=== PATIENT | male | born 1950 | race Caucasian/White ===

== ENCOUNTER 2016-12-14 17:12 | Emergency (ER) | payer BC, OTHER ==
[2016-12-14] MEDS ORDERED: SULFAMETH/TRIMETH DS 800/160 MG TABLET PO STA (18:30)
[2016-12-14] MEDS ORDERED: ceFAZolin 1 GM VIAL IM STA (18:30)
[2016-12-14] MEDS ORDERED: ceFAZolin 1 GM VIAL ONE (18:47)
[2016-12-14] MEDS ORDERED: SULFAMETH/TRIMETH DS 800/160 MG TABLET PO ONE (18:47)
[2016-12-14] MEDS ORDERED: WATER FOR INJECTION,STERILE 10 ML ONE (18:48)
--- NOTE | 2016-12-14 19:14 | ED Physician Documentation ---
History of Present Illness - Stated complaint Stated Complaint: RT FOOT SWELLING PX - Chief complaint Chief Complaint: Ext Problem - History obtained from History obtained from: Patient - Additonal information Additional information: Patient is a 66-year-old man with rheumatoid arthritis on Humira and methotrexate. He sustained an abrasion to the right lateral malleolus when he scraped it on the ladder on the of this month. Over the past couple days the area has become red, swollen, more tender to touch and is been oozing. He is concerned about infection. He has no other systemic complaints. During evaluation for the latter injury he had radiographs done which were negative and also got tetanus prophylaxis. Review of systems: For pertinent positive and negatives in the review of systems please see the history of present illness, otherwise all other systems have been reviewed and are negative. Dragon disclaimer: Parts of this medical record were created using voice recognition technology. Because of the inherent limitations of this system, occasional same sounding word substitutions do occur and persist despite proofreading. Please read the document for context. Review of Systems Constitutional: denies: Fever, Chills Musculoskeletal: reports: Extremity pain, Joint pain, Extremity swelling, Joint swelling PD PAST MEDICAL HISTORY - Past Medical History Past Medical History: Yes Cardiovascular: Hypertension Respiratory: Asthma Other Past Medical History: rheumatoid arthritis - Past Surgical History Past Surgical History: Yes General: Hiatal hernia repair - Present Medications Home Medications: Ambulatory Orders Medication Instructions Recorded Confirmed Adalimumab [Humira] 1 unit SQ 12/14/16 Cephalexin [Keflex] 1,000 mg PO BID #20 capsule 12/14/16 Folic Acid 3 mg PO DAILY 12/14/16 12/14/16 Hydroxychloroquine [Plaquenil] 200 mg PO DAILY 12/14/16 12/14/16 Methotrexate 0.3 mg PO DAILY 12/14/16 12/14/16 Pravastatin [Pravachol] 10 mg PO DAILY 12/14/16 12/14/16 Sulfamethox/Trimeth 800/160 1 each PO BID #10 tablet 12/14/16 [Bactrim Ds 800/160] - Allergies Allergies/Adverse Reactions: Allergies Allergy/AdvReac Type Severity Reaction Status Date / Time clarithromycin [From Biaxin] Allergy Nausea Verified 12/14/16 17:21 lisinopril Allergy Dizziness Verified 12/14/16 18:18 - Social History Does the pt smoke?: No Smoking Status: Never smoker Does the pt drink ETOH?: No Does the pt have substance abuse?: No PD ED PE NORMAL - General General: Alert and oriented X 3, No acute distress, Well developed/nourished - Cardiac Cardiac: RRR - Respiratory Respiratory: No respiratory distress, Clear bilaterally - Abdomen Abdomen: Normal bowel sounds - Derm Derm: Normal color, Warm and dry, No rash - Extremities Extremities: Other (On examination his right lower extremity there is mild edema of the dorsum of the right foot. Circulation looks fantastic. He does have an abrasion of the right lateral malleolus that is superficial but appears to be infected. It is wet with surrounding erythema, edema and is noted to be tender. There is no fluctuance present) Results - Vitals Vitals: Vital Signs - 24 hr 12/14/16 17:18 Temperature 36.7 C Heart Rate 77 Respiratory 18 Rate Blood Pressure 131/84 H O2 Saturation 97 Oxygen O2 Source Room air PD MEDICAL DECISION MAKING - ED course Complexity details: reviewed results, re-evaluated patient, d/w patient, d/w family ED course: This patient has a superficial skin infection of the right lateral malleolus. This patient is at risk given his immunocompromise state from his Humira and methotrexate. The wound was debrided and cleansed by me using cotton 4 x 4 scrubs and chlorhexidine. The patient was given 1 g of Ancef intramuscularly and will be started on Bactrim p.o. for dual coverage for both staph and strep. The patient agrees to watch it closely for worsening. He is to rest it, elevate it, take his antibiotics as prescribed, perform wound care and return if worse. He has no follow-up physician in town since he is a traveler. If he gets worse he is urged to come back to the emergency department. Disposition: To home Clinical impression: 1. Cellulitis right ankle at lateral malleolus Departure - Departure Disposition: 01 Home, Self Care Clinical Impression: Cellulitis of right ankle Condition: Good Instructions: ED Infec Skin Cellulitis Prescriptions: Sulfamethox/Trimeth 800/160 [Bactrim Ds 800/160] 1 each PO BID #10 tablet Cephalexin [Keflex] 1,000 mg PO BID #20 capsule
[2016-12-14 19:26] VITALS: BP 116/78
== END 2016-12-14 19:25 | disposition home or self-care (01) ==
LOC: ED 17:12
DX: L03.115 Cellulitis of right lower limb (principal); I10 Essential (primary) hypertension; M06.9 Rheumatoid arthritis, unspecified
CPT/HCPCS: 96372; 99283; A9270

== ENCOUNTER 2018-03-17 10:37 | Emergency (ER) | payer MEDICARE, OTHER ==
[2018-03-17 10:47] VITALS: BP 151/91
[2018-03-17 11:01] LABS: BILIRUBIN,URINE NEGATIVE (NEGATIVE); GLUCOSE, URINE (UA) NEGATIVE (NEGATIVE); KETONES,URINE (UA) NEGATIVE (NEGATIVE); LEUKOCYTE ESTERASE, URINE LARGE (NEGATIVE); NITRITE,URINE NEGATIVE (NEGATIVE); OCCULT BLOOD,URINE MODERATE (NEGATIVE); PROTEIN,URINE 100 mg/dL (NEGATIVE); UROBILINOGEN,URINE 0.2 (NORMAL) E.U./dL (NORMAL)
[2018-03-17 11:09] LABS: CLARITY,URINE CLOUDY (CLEAR)
[2018-03-17 11:17] LABS: BACTERIA,URINE Many /HPF (None Seen); SQUAMOUS EPITHELIAL CELL,UR RARE Squamous (<= Few)
[2018-03-17] MEDS ORDERED: cephALEXin 250 MG CAPSULE PO STA (11:24)
--- NOTE | 2018-03-17 11:33 | ED Physician Documentation ---
History of Present Illness - Stated complaint Stated Complaint: MALE - Chief complaint Chief Complaint: General - Additonal information Additional information: 67-year-old male presents the emergency department with ongoing dysuria over the past several days. The patient's dysuria has been becoming more frequent and the patient's noticed that he has to strain to pass urine and reports flatulence with these episodes. The patient is denying focal abdominal pain or flank pain or fever. Symptoms are described as moderate and worsening. No other associated symptoms. No relieving factors. Review of Systems Constitutional: denies: Fever Eyes: denies: Discharge Ears: denies: Ear pain Nose: denies: Congestion Cardiac: denies: Chest pain / pressure Respiratory: denies: Cough GI: denies: Diarrhea : reports: Dysuria. denies: Incontinent Skin: denies: Rash Musculoskeletal: denies: Neck pain Neurologic: denies: Generalized weakness Immunocompromised: reports: Immunocompromised PD PAST MEDICAL HISTORY - Past Medical History Past Medical History: Yes Cardiovascular: Hypertension Respiratory: Asthma GI: Ulcerative colitis Musculoskeletal: Rheumatoid arthritis - Past Surgical History Past Surgical History: Yes General: Hiatal hernia repair - Present Medications Home Medications: Ambulatory Orders Medication Instructions Recorded Confirmed Adalimumab [Humira] 1 unit SQ 12/14/16 Cephalexin [Keflex] 1,000 mg PO BID #20 capsule 12/14/16 Folic Acid 3 mg PO DAILY 12/14/16 12/14/16 Hydroxychloroquine [Plaquenil] 200 mg PO DAILY 12/14/16 12/14/16 Methotrexate 0.3 mg PO DAILY 12/14/16 12/14/16 Pravastatin [Pravachol] 10 mg PO DAILY 12/14/16 12/14/16 Sulfamethox/Trimeth 800/160 1 each PO BID #10 tablet 12/14/16 [Bactrim Ds 800/160] Cephalexin [Keflex] 500 mg PO BID #14 capsule 03/17/18 - Allergies Allergies/Adverse Reactions: Allergies Allergy/AdvReac Type Severity Reaction Status Date / Time clarithromycin [From Biaxin] Allergy Nausea Verified 12/14/16 17:21 lisinopril Allergy Dizziness Verified 12/14/16 18:18 - Social History Does the pt smoke?: No Smoking Status: Never smoker Does the pt drink ETOH?: Yes ETOH Use: Beer, Liquor Does the pt have substance abuse?: No - Immunizations Immunizations are current?: Yes - POLST Patient has POLST: Yes PD ED PE NORMAL - General General: Alert and oriented X 3, No acute distress - HEENT HEENT: Atraumatic, PERRL, EOMI, Ears normal - Cardiac Cardiac: RRR, Strong equal pulses - Respiratory Respiratory: No respiratory distress - Abdomen Abdomen: Normal bowel sounds, Soft, Non tender - Back Back: No CVA TTP - Derm Derm: Normal color - Extremities Extremities: No deformity, No edema - Neuro Neuro: Alert and oriented X 3, Normal speech - Psych Psych: Normal affect Results - Vitals Vitals: Vital Signs - 24 hr 03/17/18 10:41 Temperature 36.9 C Heart Rate 86 Respiratory 16 Rate Blood Pressure 151/91 H O2 Saturation 97 Oxygen O2 Source Room air - Labs Labs: Laboratory Tests 03/17/18 10:50 Urine Color YELLOW Urine Clarity CLOUDY Urine pH 6.0 Ur Specific [place] >=1.030 H Urine Protein 100 H Urine Glucose (UA) NEGATIVE Urine Ketones NEGATIVE Urine Occult Blood MODERATE H Urine Nitrite NEGATIVE Urine Bilirubin NEGATIVE Urine Urobilinogen 0.2 (NORMAL) Ur Leukocyte Esterase LARGE H Urine RBC 11-25 H Urine WBC >25 H Ur Squamous Epith Cells RARE Squamous Urine Bacteria Many H Ur Microscopic Review INDICATED Urine Culture Comments INDICATED PD MEDICAL DECISION MAKING - ED course ED course: The patient has acute cystitis and will require antibiotic therapy. Presently on physical exam there is no findings to suggest pyelonephritis or sepsis at this point. The patient is well-appearing and appropriate for outpatient management. I discussed with the patient and his the findings and plan. They understand and agree. I discussed that the may require a urology consultation for further investigation. They understand and agree. I discussed warning signs and recommended returning to the emergency department immediately for any worsening or concerns. Departure - Departure Disposition: 01 Home, Self Care Clinical Impression: Acute cystitis with hematuria Condition: Good Instructions: ED Infec Bladder Cystitis Male Prescriptions: Cephalexin [Keflex] 500 mg PO BID #14 capsule Comments: Please follow-up with primary care for ongoing management of your symptoms. Please ask for a referral to urology to further assess your symptoms. Please return to the emergency department immediately for any worsening or any concerns. Discharge Date/Time: 03/17/18 11:39
== END 2018-03-17 11:39 | disposition home or self-care (01) ==
LOC: ED 10:37
DX: N30.91 Cystitis, unspecified with hematuria (principal); I10 Essential (primary) hypertension; M06.9 Rheumatoid arthritis, unspecified
CPT/HCPCS: 81001; 87086; 87181; 99283; A9270; 81003

== ENCOUNTER 2018-03-28 11:20 | Inpatient (IN) | payer MEDICARE, OTHER ==
[2018-03-28] MEDS ORDERED: ONDANSETRON 4 MG/2 ML VIAL IVP STA (12:35)
[2018-03-28] MEDS ORDERED: SODIUM CHLORIDE 0.9% 1,000 ML IV ONE (12:35)
--- NOTE | 2018-03-28 12:40 | ED Physician Documentation ---
History of Present Illness - Stated complaint Stated Complaint: VOMITING/FEVER - Chief complaint Chief Complaint: Abd Pain - History obtained from History obtained from: Patient, Family - History of Present Illness Timing: How many days ago (2) Pain level max: 0 Pain level now: 0 Improved by: motrin Worsened by: coughing Associated symptoms: fever, nausea, vomiting, sorethroat, productive whitish cough - Additonal information Additional information: 67 y/o male with history of asthma, HTN, RA (on Humira, Methotrexate), sinus surgery here with with complain of fever 103 2 days ago controlled with tylenol and/or motrin; nausea and vomiting without abdominal pain but feels bloated, sorethroat from vomiting and coughing productively. Denies any trauma,travel or sick contacts. From [place] - moved in January. Review of Systems Ten Systems: 10 systems reviewed and negative Constitutional: reports: Fever, Myalgias Nose: reports: Congestion. denies: Sinus pressure / pain Throat: reports: Sore throat Cardiac: denies: Chest pain / pressure Respiratory: reports: Cough. denies: Dyspnea, Hemoptysis GI: reports: Abdominal Swelling. denies: Abdominal Pain : denies: Dysuria Skin: denies: Rash Musculoskeletal: denies: Neck pain, Back pain, Joint pain, Extremity swelling Neurologic: reports: Generalized weakness. denies: Focal weakness, Near syncope, Syncope, Confused, Altered mental status, Headache, Reviewed and negative PD PAST MEDICAL HISTORY - Past Medical History Cardiovascular: Hypertension Respiratory: Asthma GI: Ulcerative colitis Musculoskeletal: Rheumatoid arthritis - Past Surgical History Past Surgical History: Yes General: Hiatal hernia repair - Present Medications Home Medications: Ambulatory Orders Medication Instructions Recorded Confirmed Adalimumab [Humira] 1 unit SQ 12/14/16 Cephalexin [Keflex] 1,000 mg PO BID #20 capsule 12/14/16 Folic Acid 3 mg PO DAILY 12/14/16 12/14/16 Hydroxychloroquine [Plaquenil] 200 mg PO DAILY 12/14/16 12/14/16 Methotrexate 0.3 mg PO DAILY 12/14/16 12/14/16 Pravastatin [Pravachol] 10 mg PO DAILY 12/14/16 12/14/16 Sulfamethox/Trimeth 800/160 1 each PO BID #10 tablet 12/14/16 [Bactrim Ds 800/160] Cephalexin [Keflex] 500 mg PO BID #14 capsule 03/17/18 - Allergies Allergies/Adverse Reactions: Allergies Allergy/AdvReac Type Severity Reaction Status Date / Time amlodipine Allergy Unknown Verified 03/28/18 11:26 clarithromycin [From Biaxin] Allergy Nausea Verified 03/28/18 11:26 lisinopril Allergy Dizziness Verified 03/28/18 11:26 - Social History Does the pt smoke?: No Smoking Status: Never smoker Does the pt drink ETOH?: Yes Does the pt have substance abuse?: No - Immunizations Immunizations are current?: Yes - POLST Patient has POLST: Yes PD ED PE NORMAL - Vitals Vital signs reviewed: Yes - General General: Alert and oriented X 3, No acute distress, Well developed/nourished - HEENT HEENT: Atraumatic, PERRL, EOMI, Moist mucous membranes, Other (posterior pharynx erythematous but without exudate) - Neck Neck: Supple, no meningeal sign, Other (small nontender anterior cervical adenopathy) - Cardiac Cardiac: RRR, No murmur - Respiratory Respiratory: No respiratory distress, Clear bilaterally - Abdomen Abdomen: Normal bowel sounds, Soft, Non tender, Non distended - Back Back: No CVA TTP, No spinal TTP - Derm Derm: Normal color, Warm and dry, No rash - Extremities Extremities: No deformity, No edema - Neuro Neuro: Alert and oriented X 3 - Psych Psych: Normal mood, Normal affect Results - Vitals Vitals: Vital Signs - 24 hr 03/28/18 03/28/18 03/28/18 11:23 11:58 13:29 Temperature 37.2 C 37.3 C Heart Rate 95 93 Respiratory 16 20 Rate Blood Pressure 127/68 O2 Saturation 94 Oxygen O2 Source Room air - Labs Labs: Laboratory Tests 03/28/18 03/28/18 03/28/18 11:50 11:50 12:47 WBC 18.3 H RBC 3.87 L Hgb 12.0 L Hct 34.7 L MCV 89.6 MCH 30.9 MCHC 34.5 RDW 14.4 Plt Count 231 MPV 8.0 Neut # (Auto) 17.0 H Lymph # (Auto) 0.5 L Love # (Auto) 0.8 Eos # (Auto) 0.0 Baso # (Auto) 0.0 Absolute Nucleated RBC 0.00 Nucleated RBC % 0.0 Sodium Potassium Chloride Carbon Dioxide Anion Gap BUN Creatinine Estimated GFR (MDRD) Glucose Lactic Acid Calcium Total Bilirubin AST ALT Alkaline Phosphatase Total Protein Albumin Globulin Albumin/Globulin Ratio Lipase Influenza A (Rapid) Negative Influenza B (Rapid) Negative Group A Strep Rapid Negative 03/28/18 03/28/18 12:47 12:47 WBC RBC Hgb Hct MCV MCH MCHC RDW Plt Count MPV Neut # (Auto) Lymph # (Auto) Love # (Auto) Eos # (Auto) Baso # (Auto) Absolute Nucleated RBC Nucleated RBC % Sodium 132 L Potassium 4.0 Chloride 95 L Carbon Dioxide 26 Anion Gap 11.0 BUN 33 H Creatinine 1.6 H Estimated GFR (MDRD) 43 L Glucose 124 H Lactic Acid 1.3 Calcium 8.4 L Total Bilirubin 0.8 AST 32 ALT 24 Alkaline Phosphatase 91 Total Protein 7.6 Albumin 2.9 L Globulin 4.7 H Albumin/Globulin Ratio 0.6 L Lipase 27 Influenza A (Rapid) Influenza B (Rapid) Group A Strep Rapid PD MEDICAL DECISION MAKING - ED course Complexity details: reviewed results (Per RN patient has been coughing and complaining of bronchospasm requesting for nebulizer. Will order DuoNeb. Respiratory therapist at the bedside. And after treatment she stated that the patient felt better and his pulse ox is 97% room air. She denied hearing any stridor.), re-evaluated patient (1401Patient with productive cough expectorating white phlegm. Pulse ox is 95% room air. Lungs clear to auscultation bilaterally. Patient stated nebulizer helped. Patient appears weak and tired.), considered differential (influenza, bronchitis, pneumonia, strep/viral pharyngitis, sepsis), d/w patient, d/w family (1401Patient and informed of test results. And agreed to admission), d/w PMD (1408Case discussed with hospitalist Dr. Vasquez. She will admit the patient for dehydration and viral syndrome for observation.) Departure - Departure Disposition: 67 [facility] DC/Xfer Clinical Impression: Dehydration, Viral syndrome Condition: Stable
--- NOTE | 2018-03-28 12:55 | XRAY Report ---
Reason: chest pain Procedure Date: 03/28/2018 Accession Number: [id number] / [id number] Procedure: XR - Chest 1 View X-Ray CPT Code: 81638 FULL RESULT: EXAM: CHEST RADIOGRAPHY EXAM DATE: 03/28/2018 12:46 PM. CLINICAL HISTORY: Chest Pain. COMPARISON: None. TECHNIQUE: 1 view. FINDINGS: Lungs/Pleura: There is minimal streaky opacities at the lung bases favoring atelectasis or scarring. There is no vascular congestion, effusion, or pneumothorax. Mediastinum: Within exam limitations, the cardiomediastinal contour is normal. Other: None. IMPRESSION: Mild bibasilar airspace disease seen favoring atelectasis or scarring. RADIA
[2018-03-28 13:06] LABS: ALBUMIN 2.9 g/dL (3.2-5.5); ALBUMIN/GLOBULIN RATIO 0.6 (1.0-2.2); BASOPHILS % (AUTO) 0.1 %; BILIRUBIN,TOTAL 0.8 mg/dL (0.2-1.0); CALCIUM 8.4 mg/dL (8.5-10.3); CREATININE 1.6 mg/dL (0.6-1.2); LYMPHOCYTES # (AUTO) 0.5 10^3/uL (1.5-3.5); LYMPHOCYTES % (AUTO) 2.5 %; MEAN CORPUSCULAR HEMOGLOBIN 30.9 pg (27.0-31.0); MEAN CORPUSCULAR HGB CONC 34.5 g/dL (32.0-36.0); MEAN CORPUSCULAR VOLUME 89.6 fL (80.0-94.0); MONOCYTES # (AUTO) 0.8 10^3/uL (0.0-1.0); MONOCYTES % (AUTO) 4.4 %; PLT - PLATELET COUNT 231 10^3/uL (130-450); RED BLOOD COUNT 3.87 10^6/uL (4.70-6.10); RED CELL DISTRIBUTION WIDTH 14.4 % (12.0-15.0); TOTAL PROTEIN 7.6 g/dL (6.7-8.2); WHITE BLOOD COUNT 18.3 x10^3/uL (4.8-10.8)
[2018-03-28] MEDS ORDERED: IPRATROPIUM/ALBUTEROL 3 ML NEB INH STA (13:23)
[2018-03-28 14:46] LABS: BILIRUBIN,URINE NEGATIVE (NEGATIVE); GLUCOSE, URINE (UA) NEGATIVE (NEGATIVE); KETONES,URINE (UA) NEGATIVE (NEGATIVE); LEUKOCYTE ESTERASE, URINE TRACE (NEGATIVE); NITRITE,URINE NEGATIVE (NEGATIVE); OCCULT BLOOD,URINE MODERATE (NEGATIVE); PROTEIN,URINE 100 mg/dL (NEGATIVE); UROBILINOGEN,URINE 0.2 (NORMAL) E.U./dL (NORMAL)
[2018-03-28 14:56] LABS: CLARITY,URINE CLOUDY (CLEAR)
[2018-03-28 14:57] LABS: BACTERIA,URINE Moderate /HPF (None Seen); CASTS, URINE 3-5 Granular Casts /LPF; RBC,URINE 0-5 /HPF (0-5); SQUAMOUS EPITHELIAL CELL,UR RARE Squamous (<= Few)
[2018-03-28] MEDS ORDERED: TEMAZEPAM 15 MG CAPSULE PO PRN (15:16)
[2018-03-28] MEDS ORDERED: PROCHLORPERAZINE 10 MG/2 ML VIAL IVP PRN (15:16)
[2018-03-28] MEDS ORDERED: ACETAMINOPHEN 1,000 MG/100 ML 100 ML IV PRN ×2 (15:19→16:55)
[2018-03-28] MEDS ORDERED: IPRATROPIUM/ALBUTEROL 3 ML NEB INH PRN (15:26)
[2018-03-28] MEDS: D5NS W/20 MEQ KCL 1,000 ML IV SCH (16:32)
[2018-03-28] MEDS: PANTOPRAZOLE 40 MG VIAL IVP SCH (16:33)
[2018-03-28] MEDS: SODIUM CHLORIDE FLUSH 0.9% 10 ML SYRINGE IVP SCH (16:33)
[2018-03-28] MEDS: IPRATROPIUM/ALBUTEROL 3 ML NEB INH SCH (17:18)
--- NOTE | 2018-03-28 17:25 | HISTORY & PHYSICAL EXAMINATION ---
DATE OF SERVICE: 03/28/2018 Physician: Lory Purcell MD HISTORY OF PRESENT ILLNESS: This is a 67-year-old white male with a history of asthma, hypothyroidism, hypertension, rheumatoid arthritis and ulcerative colitis requiring methotrexate and Humira. He was seen in this emergency room 9 days ago with dysuria and urgency and felt to have cystitis and was sent home from the emergency room on Keflex. He did not skip the Humira, as he is supposed to do when he gets an infection, but took it 2 days ago, on schedule. Over the past 2 days, he has noted a fever to 103, myalgias, nausea and vomiting, sore throat from vomiting, cough with white sputum production and shortness of breath with wheezing and "feeling like his throat is closing up." There was no diarrhea. He presented to the emergency room and workup showed that he is dehydrated and he is being placed in Observation for management of this. PAST MEDICAL HISTORY: Hypertension, rheumatoid arthritis on methotrexate, ulcerative colitis, on Humira, recent cystitis on Keflex. FAMILY HISTORY: Noncontributory. SOCIAL HISTORY: He is a nonsmoker who never smoked, drinks beer and liquor socially. He uses no illicit drugs. ALLERGIES: AMLODIPINE, BIAXIN (which caused nausea) and LISINOPRIL(which caused dizziness). MEDICATIONS: 1. Humira unknown frequency. 2. Keflex 1000 mg p.o. b.i.d. which he finished several days ago as it was ordered for a 7 day courser 3. Folic acid 3 mg daily. 4. Plaquenil 200 mg daily. 5. Methotrexate 0.3 mg daily. 6. Pravastatin 10 mg daily. 7. Levothyroxine 100 mcg po daily. REVIEW OF SYSTEMS: A comprehensive review of systems was performed and the pertinent positives are in the HPI, the rest are negative. PHYSICAL EXAMINATION GENERAL: White male who appears in mild distress and fatigued. VITAL SIGNS: Blood pressure 125/64, pulse of 111 in sinus tachycardia. Fever of 37.9, room air saturation 94%. HEENT: Shows dry oral mucosa and erythema of the oropharynx, but no enlargement of the tonsils, tongue, uvula or narrowing of the airway. NECK: Without JVD or carotid bruits. LUNGS: Clear, but scattered wheezes. HEART: Heart sounds normal, but tachycardic. ABDOMEN: Soft, nontender. No organomegaly. Diminished bowel sounds. EXTREMITIES: No clubbing, cyanosis, edema. NEUROLOGIC: Intact. LABORATORY DATA: Sodium 132, potassium 4.0, BUN 33, creatinine 1.6. Lactic acid 1.3, magnesium 2.3, normal liver tests, and bilirubin and lipase. BNP 65. White blood count 18.3 with a left shift, hemoglobin 12 with an MCV of 89, platelet count 231. Urinalysis showed positive occult blood, high protein, trace leukocyte esterase, moderate bacteria. Serology was negative for influenza A and B. IMAGING: Chest x-ray: No active pulmonary disease. No EKG was done. IMPRESSION/DIAGNOSES 1. Dehydration. 2. Acute kidney injury. 3. Viral syndrome versus gastroenteritis versus gastrointestinal upset from the antibiotics (least likely). 4. Cystitis, partially treated. 5. Laryngospasm, possibly. 6. Asthma, with exacerbation. 7. History of rheumatoid arthritis. 8. History of ulcerative colitis. 9. Immunocompromised state, on Humira. PLAN: Place the patient in Observation, if he worsens then change to Inpatient status. Begin IV fluids for rehydration using D5 NS with potassium at a rate of 100 an hour. Start bowel rest, but advance to clear liquid diet as tolerated. Use antiemetics and IV pain medications. Await the repeat urine cultures sent from the ER today, but will start IV antibiotics based on the sensitivities from the E coli that grew on the 03/21/18 ER urine culture and give a complete 2 wek course for his urinary tract infection/cystitis. Hold the medications for his RA and ulcerative colitis. Follow his electrolytes and CBC daily. Start nebs and iv steroids to treat his asthma and possible laryngospasm. Deep venous thrombosis prophylaxis: SCDs. CODE STATUS: FULL CODE. ATTESTATION: The patient is expected to be discharged or transferred to another facility within 96 hours: Yes. TD: 03/28/2018 16:54 MARY
[2018-03-28] MEDS: methylPREDNISolone SUCCINATE 40 MG/ML VIAL IVP SCH ×2 (18:10→22:05)
[2018-03-28] MEDS: GI COCKTAIL 120 ML BOTTLE PO SCH ×2 (18:10→22:05)
[2018-03-28] MEDS: cefTRIAXone 1 GM in SODIUM CHLORIDE 0.9% MINIBAG 100 ML IV SCH (19:50)
[2018-03-29] MEDS: SODIUM CHLORIDE FLUSH 0.9% 10 ML SYRINGE IVP SCH ×3 (03:10→16:28)
[2018-03-29] MEDS: D5NS W/20 MEQ KCL 1,000 ML IV SCH ×2 (03:24→13:01)
[2018-03-29 06:29] LABS: BASOPHILS % (AUTO) 0.1 %; HGB - HEMOGLOBIN 11.5 g/dL (14.0-18.0); LYMPHOCYTES # (AUTO) 0.2 10^3/uL (1.5-3.5); LYMPHOCYTES % (AUTO) 2.4 %; MEAN CORPUSCULAR HEMOGLOBIN 30.6 pg (27.0-31.0); MEAN CORPUSCULAR HGB CONC 33.3 g/dL (32.0-36.0); MONOCYTES # (AUTO) 0.1 10^3/uL (0.0-1.0); MONOCYTES % (AUTO) 1.2 %; NEUTROPHILS # (AUTO) 8.5 10^3/uL (1.5-6.6); NEUTROPHILS % (AUTO) 96.3 %; PLT - PLATELET COUNT 192 10^3/uL (130-450); RED BLOOD COUNT 3.76 10^6/uL (4.70-6.10); WHITE BLOOD COUNT 8.9 x10^3/uL (4.8-10.8)
[2018-03-29 06:39] LABS: CALCIUM 7.9 mg/dL (8.5-10.3); CREATININE 1.4 mg/dL (0.6-1.2)
[2018-03-29] MEDS: PANTOPRAZOLE 40 MG VIAL IVP SCH ×2 (06:59→16:40)
[2018-03-29] MEDS: methylPREDNISolone SUCCINATE 40 MG/ML VIAL IVP SCH (06:59)
[2018-03-29] MEDS ORDERED: LEVOTHYROXINE 100 MCG TABLET PO SCH (07:00)
[2018-03-29] MEDS: GI COCKTAIL 120 ML BOTTLE PO SCH ×3 (07:02→22:04)
[2018-03-29] MEDS: IPRATROPIUM/ALBUTEROL 3 ML NEB INH SCH ×4 (07:20→19:19)
[2018-03-29] MEDS: LEVOTHYROXINE 100 MCG VIAL IVP SCH (08:59)
[2018-03-29] MEDS ORDERED: HYDROXYCHLOROQUINE 200 MG TABLET PO SCH (09:00)
[2018-03-29] MEDS ORDERED: FOLIC ACID 1 MG TABLET PO SCH (09:00)
[2018-03-29] MEDS ORDERED: traMADol 50 MG TABLET PO PRN (10:50)
--- NOTE | 2018-03-29 11:04 | PROVIDER PROGRESS NOTE ---
Assessment/Plan - Problem List (1) Asthma exacerbation Assessment/Plan: Patient presented with cough, wheezing, fevers and sore throat. Likely patient had a viral URI and now has an asthma exacerbation. Secondary to the URI patient also appears to have become dehydrated. Patient slightly improved but still very wheezing and has productive cough. CXR negative for pneumonia but shows atlectasis and patient takes very shallow breaths. Plan: Duonebs prn Prednisone Budesonide BID Formoterol BID Supplemental O2 Wean O2 IS (2) UTI (urinary tract infection) Assessment/Plan: Patient had UTI which was treated with keflex but continued to have symptoms and repeat UA shows persistent UTI. Patient had elevated WBC on presentation Continue treatment with ceftriaxone WBC improving Patient is immunosupressed secondary to being on humira Urine cx growing e coli awaiting susceptibilities (3) ISREAL (acute kidney injury) Assessment/Plan: Patient presented with ISREAL with patcher up to 1.6 appears likely to be prerenal as patient was dry Improving with IVFs now patcher is down to 1.4 Patient is improving slowly (4) Hyponatremia Assessment/Plan: Patient had a Na of 132 on presentation which appeared to be hypovolemic hyponatremia It resolved with IVFs (5) URI (upper respiratory infection) Qualifiers: URI type: unspecified viral URI Qualified Code(s): J06.9 - Acute upper respiratory infection, unspecified Assessment/Plan: Patient appears to have had a URI which caused an asthma exacerbation and dehydration Patient is immunsupressed secondary to being on humira so maybe slower to rec over CXR showed no evidence of pneumonia Patient improving slowly with supportive care. - Current Meds Current Meds: Current Medications Generic Name Dose Route Start Last Admin Trade Name Freq PRN Reason Stop Dose Admin Albuterol/Ipratropium 3 ml 03/28/18 19:00 03/29/18 07:20 Duoneb INH 03/31/18 08:00 3 ml RTQID NAVA Administration Potassium Chloride/Dextrose/Sod Cl 1,000 mls @ 100 mls/hr 03/28/18 16:00 03/29/18 03:24 IV 100 mls/hr .Q10H NAVA Administration Ceftriaxone Sodium 1 gm/ 100 mls @ 200 mls/hr 03/28/18 18:00 03/28/18 20:20 Sodium Chloride IV Infused Q24H NAVA Infusion Levothyroxine Sodium 50 mcg 03/29/18 09:00 03/29/18 08:59 Synthroid Inj IVP 50 mcg DAILY NAVA Administration Multi-Ingredient Mouthwash/Gargle 30 ml 03/28/18 18:00 03/29/18 07:02 PO 30 ml TID NAVA Administration Pantoprazole Sodium 40 mg 03/28/18 16:00 03/29/18 06:59 Protonix IVP 40 mg BIDAC NAVA Administration Sodium Chloride 10 ml 03/28/18 17:00 03/29/18 08:59 Normal Saline Flush 0.9% IVP 10 ml 0100,0900,1700 NAVA Administration - Lab Result Lab results reviewed: Yes Fish Bone Diagrams: 03/29/18 06:05 03/29/18 06:05 - Diagnostic Imaging Results Diagnostic Imaging Results: Final report reviewed - Additional Planning Condition/Complexity: Improved My Orders: My Active Orders 03/29/18 10:50 traMADol [Ultram] 50 mg PO Q6H PRN 03/29/18 10:51 Nebulizer/MDI Tx. [RC] QID Resp Teach Nebulizer/MDI [RC] .ONCE 03/29/18 10:52 Nebulizer/MDI Tx. [RC] QID Resp Teach Nebulizer/MDI [RC] .ONCE 03/29/18 11:00 diltiaZEM CD [Cardizem Cd] 180 mg PO DAILY 03/29/18 19:00 Budesonide [Pulmicort] 0.5 mg INH RTBID Formoterol Fumarate [Perforomist] 20 mcg INH RTBID 03/29/18 21:00 Montelukast [Singulair] 10 mg PO QPM Pravastatin [Pravachol] 40 mg PO QPM 03/30/18 08:00 predniSONE [Deltasone] 40 mg PO DAILYWM 03/30/18 09:00 Cetirizine [ZyrTEC] 10 mg PO DAILY Plan Discussed with:: Patient, Spouse Time Spent: 31-60 minutes Subjective - Subjective Patient Reports: Cough (Productive cough with sputum production), Shortness of Breath (Improving but still wheezing.), Other (No fevers overnight. Sore throat.) Nursing Reports: No Complaints Objective Vital Signs: Vital Signs - 24 hr 03/28/18 03/28/18 03/28/18 11:23 11:58 13:29 Temperature 37.2 C 37.3 C Heart Rate 95 93 Heart Rate [ Brachial] Respiratory 16 20 Rate Blood Pressure 127/68 Blood Pressure [Right Brachial artery] O2 Saturation 94 03/28/18 03/28/18 03/28/18 15:45 16:00 17:18 Temperature 37.9 C H Heart Rate 111 H 98 Heart Rate [ 102 H Brachial] Respiratory 16 18 30 H Rate Blood Pressure 129/72 Blood Pressure 125/64 [Right Brachial artery] O2 Saturation 96 94 03/28/18 03/28/18 03/29/18 20:03 20:10 00:00 Temperature 37.9 C H 37.9 C H 36.5 C Heart Rate 97 Heart Rate [ 97 75 Brachial] Respiratory 18 18 22 Rate Blood Pressure Blood Pressure 133/61 H 117/66 [Right Brachial artery] O2 Saturation 95 97 95 03/29/18 03/29/18 03/29/18 03:33 05:28 07:24 Temperature 36.4 C L Heart Rate 78 Heart Rate [ 77 Brachial] Respiratory 20 24 Rate Blood Pressure Blood Pressure 110/59 L [Right Brachial artery] O2 Saturation 92 95 03/29/18 08:00 Temperature 36.4 C L Heart Rate Heart Rate [ 77 Brachial] Respiratory 18 Rate Blood Pressure Blood Pressure 127/71 [Right Brachial artery] O2 Saturation 92 Oxygen O2 Source Nasal cannula I&O (Last 24 Hrs): Intake and Output Totals x24h 03/27/18 03/28/18 03/29/18 23:59 23:59 23:59 Intake Total 1900 2020 Output Total 1250 1025 Balance 650 995 General: Alert, Oriented x3, Cooperative, No acute distress, Other (Ill appearing) HEENT: Atraumatic, PERRLA, EOMI, Other (Dry mucus membranes) Neck: Supple, No JVD, No thyromegaly, +2 carotid pulse wo bruit, No LAD Lymphatic: no adenopathy Neuro: Alert, Non Focal, CN 2-12 Grossly Intact, Oriented Times 3 Cardiovascular: Regular rate, Normal S1, Normal S2, No murmurs Respiratory: Wheezes (BIlateral, epiratory, diffuse), Other (Upper respiratory wheezes) Abdomen: Normal bowel sounds, Soft, No tenderness, No hepatospenomegaly, No masses Extremities: No clubbing, No cyanosis, No edema, Normal pulses Skin: No rashes, No breakdown - Results Results: Laboratory Results WBC 8.9 x10^3/uL (4.8-10.8) 03/29/18 06:05 RBC 3.76 10^6/uL (4.70-6.10) L 03/29/18 06:05 Hgb 11.5 g/dL (14.0-18.0) L 03/29/18 06:05 Hct 34.6 % (42.0-52.0) L 03/29/18 06:05 MCV 92.0 fL (80.0-94.0) 03/29/18 06:05 MCH 30.6 pg (27.0-31.0) 03/29/18 06:05 MCHC 33.3 g/dL (32.0-36.0) 03/29/18 06:05 RDW 15.0 % (12.0-15.0) 03/29/18 06:05 Plt Count 192 10^3/uL (130-450) 03/29/18 06:05 MPV 8.0 fL (7.4-11.4) 03/29/18 06:05 Neut # (Auto) 8.5 10^3/uL (1.5-6.6) H 03/29/18 06:05 Lymph # (Auto) 0.2 10^3/uL (1.5-3.5) L 03/29/18 06:05 [place] # (Auto) 0.1 10^3/uL (0.0-1.0) 03/29/18 06:05 Eos # (Auto) 0.0 10^3/uL (0.0-0.7) 03/29/18 06:05 Baso # (Auto) 0.0 10^3/uL (0.0-0.1) 03/29/18 06:05 Absolute Nucleated RBC 0.00 x10^3/uL 03/29/18 06:05 Nucleated RBC % 0.0 /100WBC 03/29/18 06:05 Sodium 136 mmol/L (135-145) 03/29/18 06:05 Potassium 4.2 mmol/L (3.5-5.0) 03/29/18 06:05 Chloride 104 mmol/L (101-111) 03/29/18 06:05 Carbon Dioxide 26 mmol/L (21-32) 03/29/18 06:05 Anion Gap 6.0 (6-13) 03/29/18 06:05 BUN 29 mg/dL (6-20) H 03/29/18 06:05 Creatinine 1.4 mg/dL (0.6-1.2) H 03/29/18 06:05 Estimated GFR (MDRD) 51 (>89) L 03/29/18 06:05 Glucose 169 mg/dL (70-100) H 03/29/18 06:05 Lactic Acid 1.3 mmol/L (0.5-2.2) 03/28/18 12:47 Calcium 7.9 mg/dL (8.5-10.3) L 03/29/18 06:05 Magnesium 2.3 mg/dL (1.7-2.8) 03/28/18 12:47 Total Bilirubin 0.8 mg/dL (0.2-1.0) 03/28/18 12:47 AST 32 IU/L (10-42) 03/28/18 12:47 ALT 24 IU/L (10-60) 03/28/18 12:47 Alkaline Phosphatase 91 IU/L (42-121) 03/28/18 12:47 B-Natriuretic Peptide 65 pg/mL (5-100) 03/28/18 12:47 Total Protein 7.6 g/dL (6.7-8.2) 03/28/18 12:47 Albumin 2.9 g/dL (3.2-5.5) L 03/28/18 12:47 Globulin 4.7 g/dL (2.1-4.2) H 03/28/18 12:47 Albumin/Globulin Ratio 0.6 (1.0-2.2) L 03/28/18 12:47 Lipase 27 U/L (22-51) 03/28/18 12:47 Urine Color YELLOW 03/28/18 14:40 Urine Clarity CLOUDY (CLEAR) 03/28/18 14:40 Urine pH 6.0 PH (5.0-7.5) 03/28/18 14:40 Ur Specific [place] 1.025 (1.002-1.030) 03/28/18 14:40 Urine Protein 100 mg/dL (NEGATIVE) H 03/28/18 14:40 Urine Glucose (UA) NEGATIVE mg/dL (NEGATIVE) 03/28/18 14:40 Urine Ketones NEGATIVE mg/dL (NEGATIVE) 03/28/18 14:40 Urine Occult Blood MODERATE (NEGATIVE) H 03/28/18 14:40 Urine Nitrite NEGATIVE (NEGATIVE) 03/28/18 14:40 Urine Bilirubin NEGATIVE (NEGATIVE) 03/28/18 14:40 Urine Urobilinogen 0.2 (NORMAL) E.U./dL (NORMAL) 03/28/18 14:40 Ur Leukocyte Esterase TRACE (NEGATIVE) H 03/28/18 14:40 Urine RBC 0-5 /HPF (0-5) 03/28/18 14:40 Urine WBC >25 /HPF (0-3) H 03/28/18 14:40 Ur Squamous Epith Cells RARE Squamous (<= Few) 03/28/18 14:40 Urine Bacteria Moderate /HPF (None Seen) H 03/28/18 14:40 Urine Casts 3-5 Granular Casts /LPF 03/28/18 14:40 Ur Microscopic Review INDICATED 03/28/18 14:40 Urine Culture Comments INDICATED 03/28/18 14:40 Influenza A (Rapid) Negative (Negative) 03/28/18 11:50 Influenza B (Rapid) Negative (Negative) 03/28/18 11:50 Group A Strep Rapid Negative (Negative) 03/28/18 11:50 ABX Reporting Has patient been on IV antibiotics over the past 48 hours?: No Current Medications - Current Medications Current Medications: Active Medications Generic Name Dose Route Start Last Admin Trade Name Freq PRN Reason Stop Dose Admin Albuterol/Ipratropium 3 ml 03/28/18 15:26 Duoneb INH Q4HR PRN Wheezing Albuterol/Ipratropium 3 ml 03/28/18 19:00 03/29/18 11:02 Duoneb INH 03/31/18 08:00 3 ml RTQID NAVA Administration Budesonide 0.5 mg 03/29/18 19:00 Pulmicort INH RTBID NAVA Cetirizine HCl 10 mg 03/30/18 09:00 Zyrtec PO DAILY NAVA Diltiazem HCl 180 mg 03/29/18 11:00 03/29/18 11:06 Cardizem Cd PO 180 mg DAILY NAVA Administration Formoterol Fumarate 20 mcg 03/29/18 19:00 Perforomist INH RTBID [facility] Guaifenesin 600 mg 03/29/18 12:00 Mucinex PO BID [facility] Potassium Chloride/Dextrose/Sod Cl 1,000 mls @ 100 mls/hr 03/28/18 16:00 03/29/18 03:24 IV 100 mls/hr .Q10H NAVA Administration Ceftriaxone Sodium 1 gm/ 100 mls @ 200 mls/hr 03/28/18 18:00 03/28/18 20:20 Sodium Chloride IV Infused Q24H NAVA Infusion Acetaminophen 100 mls @ 400 mls/hr 03/28/18 16:55 Ofirmev IV Q6HR PRN Pain or Fever > 38C (100.4F) Levothyroxine Sodium 50 mcg 03/29/18 09:00 03/29/18 08:59 Synthroid Inj IVP 50 mcg DAILY [facility] Administration Montelukast Sodium 10 mg 03/29/18 21:00 Singulair PO QPM [facility] Multi-Ingredient Mouthwash/Gargle 30 ml 03/28/18 18:00 03/29/18 07:02 PO 30 ml TID [facility] Administration Pantoprazole Sodium 40 mg 03/28/18 16:00 03/29/18 06:59 Protonix IVP 40 mg BIDAC [facility] Administration Pravastatin Sodium 40 mg 03/29/18 21:00 Pravachol PO QPM [facility] Prednisone 40 mg 03/30/18 08:00 Deltasone PO DAILYWM [facility] Prochlorperazine Edisylate 10 mg 03/28/18 15:16 Compazine Inj IVP Q6HR PRN Nausea / Vomiting Sodium Chloride 10 ml 03/28/18 15:16 Normal Saline Flush 0.9% IVP PRN PRN NEEDED PER PROVIDER ORDERS Sodium Chloride 10 ml 03/28/18 17:00 03/29/18 08:59 Normal Saline Flush 0.9% IVP 10 ml 0100,0900,1700 [facility] Administration Temazepam 15 mg 03/28/18 15:16 Restoril PO QPM PRN Insomnia Tramadol HCl 50 mg 03/29/18 10:50 Ultram PO Q6H PRN PAIN Folic Acid 3 mg PO DAILY 12/14/16 Hydroxychloroquine [Plaquenil] 200 mg PO DAILY 12/14/16 Pravastatin [Pravachol] 40 mg PO QPM 12/14/16 Adalimumab [Humira] 40 mg SQ Q14D 03/28/18 Albuterol Sulf [Ventolin Hfa Inhaler] 1 - 2 puffs INH Q4HR PRN 03/28/18 Beclomethasone Dipropionate [Qvar Redihaler] 2 puffs INH BID 03/28/18 Levothyroxine [Synthroid] 100 mcg PO QDAC 03/28/18 Methotrexate Sodium/Pf [Methotrexate 50 mg/2 ml Vial] 7.5 mg SUBQ WE 03/28/18 Cetirizine [ZyrTEC] 10 mg PO DAILY 03/29/18 Montelukast [Singulair] 10 mg PO QPM 03/29/18 dilTIAZem HCl [Diltiazem 24Hr Cd] 180 mg PO DAILY 03/29/18 traMADol [Ultram] 50 mg PO Q6H PRN 03/29/18
[2018-03-29] MEDS: diltiaZEM CD 180 MG CAPSULE PO SCH (11:06)
[2018-03-29] MEDS: guaiFENesin 600 MG TABLET PO SCH ×2 (11:47→22:04)
[2018-03-29] MEDS: cefTRIAXone 1 GM in SODIUM CHLORIDE 0.9% MINIBAG 100 ML IV SCH (18:41)
[2018-03-29] MEDS: BUDESONIDE 0.5 MG/2 ML NEB INH SCH (19:19)
[2018-03-29] MEDS: FORMOTEROL FUMARATE NEB 20 MCG/2 ML INH SCH (19:19)
[2018-03-29] MEDS: PRAVASTATIN 40 MG TABLET PO SCH (22:04)
[2018-03-29] MEDS: MONTELUKAST 10 MG TABLET PO SCH (22:04)
[2018-03-30] MEDS: D5NS W/20 MEQ KCL 1,000 ML IV SCH ×3 (00:07→19:37)
[2018-03-30] MEDS: SODIUM CHLORIDE FLUSH 0.9% 10 ML SYRINGE IVP SCH ×3 (00:30→17:36)
[2018-03-30] MEDS: GI COCKTAIL 120 ML BOTTLE PO SCH ×3 (06:29→21:01)
[2018-03-30] MEDS: SODIUM CHLORIDE FLUSH 0.9% 10 ML SYRINGE IVP PRN (06:33)
[2018-03-30] MEDS: PANTOPRAZOLE 40 MG VIAL IVP SCH ×2 (06:33→17:36)
[2018-03-30] MEDS: FORMOTEROL FUMARATE NEB 20 MCG/2 ML INH SCH ×2 (07:14→20:15)
[2018-03-30] MEDS: IPRATROPIUM/ALBUTEROL 3 ML NEB INH SCH ×4 (07:14→20:15)
[2018-03-30] MEDS: BUDESONIDE 0.5 MG/2 ML NEB INH SCH (07:15)
[2018-03-30] MEDS: levoFLOXacin 250 MG TABLET PO SCH (08:53)
[2018-03-30] MEDS: diltiaZEM CD 180 MG CAPSULE PO SCH (08:53)
[2018-03-30] MEDS: CETIRIZINE 10 MG TABLET PO SCH (08:53)
[2018-03-30] MEDS: guaiFENesin 600 MG TABLET PO SCH ×2 (08:53→21:01)
[2018-03-30] MEDS: predniSONE 20 MG TABLET PO SCH (08:53)
[2018-03-30] MEDS: LEVOTHYROXINE 100 MCG VIAL IVP SCH (08:54)
--- NOTE | 2018-03-30 18:00 | PROVIDER PROGRESS NOTE ---
Assessment/Plan - Problem List (1) Asthma exacerbation Assessment/Plan: Patient presented with cough, wheezing, fevers and sore throat. Likely patient had a viral URI and now has an asthma exacerbation. Secondary to the URI patient also appears to have become dehydrated. CXR negative for pneumonia but shows atlectasis and patient takes very shallow breaths. Patient continues to improve Plan: Duonebs prn Prednisone Budesonide BID Formoterol BID Supplemental O2 Wean O2 IS Patient will walk the halls and see how he feels today If we can wean him off oxygen and he does well with ambulation he will likely be able to be discharged tomorrow. (2) UTI (urinary tract infection) Assessment/Plan: Patient had UTI which was treated with keflex but continued to have symptoms and repeat UA shows persistent UTI. Patient had elevated WBC on presentation WBC improved and no fevers overnight. Patient is growing E. coli which is garcia susceptible Patient's IV ceftriaxone will be discontinued and we will start the patient on oral Levaquin (3) ISREAL (acute kidney injury) Assessment/Plan: Patient presented with ISREAL with tank tester up to 1.6 appears likely to be prerenal as patient was dry Improving with IVFs now tank tester is down to 1.4 Patient is improving slowly Check daily CMP in the morning (4) Hyponatremia Assessment/Plan: Patient had a Na of 132 on presentation which appeared to be hypovolemic hyponatremia It resolved with IVFs (5) URI (upper respiratory infection) Qualifiers: URI type: unspecified viral URI Qualified Code(s): J06.9 - Acute upper respiratory infection, unspecified Assessment/Plan: Patient appears to have had a URI which caused an asthma exacerbation and dehydration Patient is immunsupressed secondary to being on humira so maybe slower to recover CXR showed no evidence of pneumonia Patient improving slowly with supportive care. Patient continues to have severe coughing at night which is keeping him up. We will place him on Robitussin with codeine Patient will likely be discharged tomorrow morning. - Current Meds Current Meds: Current Medications Generic Name Dose Route Start Last Admin Trade Name Freq PRN Reason Stop Dose Admin Albuterol/Ipratropium 3 ml 03/28/18 19:00 03/30/18 14:51 Duoneb INH 03/31/18 08:00 3 ml RTQID NAVA Administration Budesonide 0.5 mg 03/29/18 19:00 03/30/18 07:15 Pulmicort INH 0.5 mg RTBID NAVA Administration Cetirizine HCl 10 mg 03/30/18 09:00 03/30/18 08:53 Zyrtec PO 10 mg DAILY NAVA Administration Diltiazem HCl 180 mg 03/29/18 11:00 03/30/18 08:53 Cardizem Cd PO 180 mg DAILY NAVA Administration Formoterol Fumarate 20 mcg 03/29/18 19:00 03/30/18 07:14 Perforomist INH 20 mcg RTBID NAVA Administration Guaifenesin 600 mg 03/29/18 12:00 03/30/18 08:53 Mucinex PO 600 mg BID NAVA Administration Potassium Chloride/Dextrose/Sod Cl 1,000 mls @ 100 mls/hr 03/28/18 16:00 03/30/18 09:04 IV 100 mls/hr .Q10H NAVA Administration Levofloxacin 750 mg 03/30/18 09:00 03/30/18 08:53 Levaquin PO 750 mg DAILY NAVA Administration Levothyroxine Sodium 50 mcg 03/29/18 09:00 03/30/18 08:54 Synthroid Inj IVP 50 mcg DAILY NAVA Administration Montelukast Sodium 10 mg 03/29/18 21:00 03/29/18 22:04 Singulair PO 10 mg QPM NAVA Administration Multi-Ingredient Mouthwash/Gargle 30 ml 03/28/18 18:00 03/30/18 13:56 PO 30 ml TID NAVA Administration Pantoprazole Sodium 40 mg 03/28/18 16:00 03/30/18 17:36 Protonix IVP 40 mg BIDAC NAVA Administration Pravastatin Sodium 40 mg 03/29/18 21:00 03/29/18 22:04 Pravachol PO 40 mg QPM NAVA Administration Prednisone 40 mg 03/30/18 08:00 03/30/18 08:53 Deltasone PO 40 mg DAILYWM NAVA Administration Sodium Chloride 10 ml 03/28/18 15:16 03/30/18 06:33 Normal Saline Flush 0.9% IVP 10 ml PRN PRN Administration NEEDED PER PROVIDER ORDERS Sodium Chloride 10 ml 03/28/18 17:00 03/30/18 17:36 Normal Saline Flush 0.9% IVP Not Given 0100,0900,1700 NAVA Temazepam 15 mg 03/28/18 15:16 03/30/18 00:07 Restoril PO 15 mg QPM PRN Administration Insomnia - Lab Result Lab results reviewed: Yes Fish Bone Diagrams: 03/29/18 06:05 03/29/18 06:05 - Diagnostic Imaging Results Diagnostic Imaging Results: Final report reviewed - Additional Planning Condition/Complexity: Guarded My Orders: My Active Orders 03/29/18 19:00 Budesonide [Pulmicort] 0.5 mg INH RTBID Formoterol Fumarate [Perforomist] 20 mcg INH RTBID 03/29/18 21:00 Montelukast [Singulair] 10 mg PO QPM Pravastatin [Pravachol] 40 mg PO QPM 03/30/18 08:00 predniSONE [Deltasone] 40 mg PO DAILYWM 03/30/18 09:00 Cetirizine [ZyrTEC] 10 mg PO DAILY levoFLOXacin [Levaquin] 750 mg PO DAILY 03/30/18 Lunch Regular Diet [DIET] 03/31/18 05:00 CBC - COMP BLD CT W/AUTO DIFF [HEME] DAILYLAB CMP, RFLX TO IONIZED CA IF [CHEM] DAILYLAB 04/01/18 05:00 CBC - COMP BLD CT W/AUTO DIFF [HEME] DAILYLAB CMP, RFLX TO IONIZED CA IF [CHEM] DAILYLAB Plan Discussed with:: Patient, Spouse Time Spent: 31-60 minutes Subjective - Subjective Patient Reports: Feeling Better, Cough (Kept him up all night and continues to be productive.), Shortness of Breath (Improving), Other (No fevers overnight.) Nursing Reports: No Complaints Objective Vital Signs: Vital Signs - 24 hr 03/29/18 03/29/18 03/30/18 19:21 23:57 07:00 Temperature 36.8 C 36.3 C L Heart Rate 72 Heart Rate [ 69 68 Brachial] Respiratory 20 20 18 Rate Blood Pressure 119/63 128/76 [Right Brachial artery] O2 Saturation 93 97 03/30/18 03/30/18 03/30/18 07:17 11:08 14:52 Temperature Heart Rate 74 70 78 Heart Rate [ Brachial] Respiratory 20 20 16 Rate Blood Pressure [Right Brachial artery] O2 Saturation 03/30/18 15:42 Temperature 36.5 C Heart Rate Heart Rate [ 82 Brachial] Respiratory 18 Rate Blood Pressure 135/65 H [Right Brachial artery] O2 Saturation 94 Oxygen O2 Source Room air I&O (Last 24 Hrs): Intake and Output Totals x24h 03/28/18 03/29/18 03/30/18 23:59 23:59 23:59 Intake Total 1900 6621.667 2925 Output Total 1250 1994 1950 Balance 650 4626.667 975 General: Alert, Oriented x3, Cooperative, No acute distress HEENT: Atraumatic, PERRLA, EOMI, Mucous membr. moist/pink Neck: Supple, No JVD, No thyromegaly, +2 carotid pulse wo bruit, No LAD Lymphatic: no adenopathy Neuro: Alert, Non Focal, CN 2-12 Grossly Intact, Oriented Times 3 Cardiovascular: Regular rate, Normal S1, Normal S2, No murmurs Respiratory: Chest non-tender, No respiratory distress, Wheezes, Other (Decreased at left base) Abdomen: Normal bowel sounds, Soft, No tenderness, No hepatospenomegaly Extremities: No clubbing, No cyanosis, No edema, Normal pulses, No tenderness/swelling Skin: No rashes, No breakdown - Results Results: Laboratory Results WBC 8.9 x10^3/uL (4.8-10.8) 03/29/18 06:05 RBC 3.76 10^6/uL (4.70-6.10) L 03/29/18 06:05 Hgb 11.5 g/dL (14.0-18.0) L 03/29/18 06:05 Hct 34.6 % (42.0-52.0) L 03/29/18 06:05 MCV 92.0 fL (80.0-94.0) 03/29/18 06:05 MCH 30.6 pg (27.0-31.0) 03/29/18 06:05 MCHC 33.3 g/dL (32.0-36.0) 03/29/18 06:05 RDW 15.0 % (12.0-15.0) 03/29/18 06:05 Plt Count 192 10^3/uL (130-450) 03/29/18 06:05 MPV 8.0 fL (7.4-11.4) 03/29/18 06:05 Neut # (Auto) 8.5 10^3/uL (1.5-6.6) H 03/29/18 06:05 Lymph # (Auto) 0.2 10^3/uL (1.5-3.5) L 03/29/18 06:05 [place] # (Auto) 0.1 10^3/uL (0.0-1.0) 03/29/18 06:05 Eos # (Auto) 0.0 10^3/uL (0.0-0.7) 03/29/18 06:05 Baso # (Auto) 0.0 10^3/uL (0.0-0.1) 03/29/18 06:05 Absolute Nucleated RBC 0.00 x10^3/uL 03/29/18 06:05 Nucleated RBC % 0.0 /100WBC 03/29/18 06:05 Sodium 136 mmol/L (135-145) 03/29/18 06:05 Potassium 4.2 mmol/L (3.5-5.0) 03/29/18 06:05 Chloride 104 mmol/L (101-111) 03/29/18 06:05 Carbon Dioxide 26 mmol/L (21-32) 03/29/18 06:05 Anion Gap 6.0 (6-13) 03/29/18 06:05 BUN 29 mg/dL (6-20) H 03/29/18 06:05 Creatinine 1.4 mg/dL (0.6-1.2) H 03/29/18 06:05 Estimated GFR (MDRD) 51 (>89) L 03/29/18 06:05 Glucose 169 mg/dL (70-100) H 03/29/18 06:05 Lactic Acid 1.3 mmol/L (0.5-2.2) 03/28/18 12:47 Calcium 7.9 mg/dL (8.5-10.3) L 03/29/18 06:05 Magnesium 2.3 mg/dL (1.7-2.8) 03/28/18 12:47 Total Bilirubin 0.8 mg/dL (0.2-1.0) 03/28/18 12:47 AST 32 IU/L (10-42) 03/28/18 12:47 ALT 24 IU/L (10-60) 03/28/18 12:47 Alkaline Phosphatase 91 IU/L (42-121) 03/28/18 12:47 B-Natriuretic Peptide 65 pg/mL (5-100) 03/28/18 12:47 Total Protein 7.6 g/dL (6.7-8.2) 03/28/18 12:47 Albumin 2.9 g/dL (3.2-5.5) L 03/28/18 12:47 Globulin 4.7 g/dL (2.1-4.2) H 03/28/18 12:47 Albumin/Globulin Ratio 0.6 (1.0-2.2) L 03/28/18 12:47 Lipase 27 U/L (22-51) 03/28/18 12:47 Urine Color YELLOW 03/28/18 14:40 Urine Clarity CLOUDY (CLEAR) 03/28/18 14:40 Urine pH 6.0 PH (5.0-7.5) 03/28/18 14:40 Ur Specific [place] 1.025 (1.002-1.030) 03/28/18 14:40 Urine Protein 100 mg/dL (NEGATIVE) H 03/28/18 14:40 Urine Glucose (UA) NEGATIVE mg/dL (NEGATIVE) 03/28/18 14:40 Urine Ketones NEGATIVE mg/dL (NEGATIVE) 03/28/18 14:40 Urine Occult Blood MODERATE (NEGATIVE) H 03/28/18 14:40 Urine Nitrite NEGATIVE (NEGATIVE) 03/28/18 14:40 Urine Bilirubin NEGATIVE (NEGATIVE) 03/28/18 14:40 Urine Urobilinogen 0.2 (NORMAL) E.U./dL (NORMAL) 03/28/18 14:40 Ur Leukocyte Esterase TRACE (NEGATIVE) H 03/28/18 14:40 Urine RBC 0-5 /HPF (0-5) 03/28/18 14:40 Urine WBC >25 /HPF (0-3) H 03/28/18 14:40 Ur Squamous Epith Cells RARE Squamous (<= Few) 03/28/18 14:40 Urine Bacteria Moderate /HPF (None Seen) H 03/28/18 14:40 Urine Casts 3-5 Granular Casts /LPF 03/28/18 14:40 Ur Microscopic Review INDICATED 03/28/18 14:40 Urine Culture Comments INDICATED 03/28/18 14:40 Influenza A (Rapid) Negative (Negative) 03/28/18 11:50 Influenza B (Rapid) Negative (Negative) 03/28/18 11:50 Group A Strep Rapid Negative (Negative) 03/28/18 11:50 ABX Reporting Has patient been on IV antibiotics over the past 48 hours?: No Current Medications - Current Medications Current Medications: Active Medications Generic Name Dose Route Start Last Admin Trade Name Freq PRN Reason Stop Dose Admin Albuterol/Ipratropium 3 ml 03/28/18 15:26 Duoneb INH Q4HR PRN Wheezing Albuterol/Ipratropium 3 ml 03/28/18 19:00 03/30/18 14:51 Duoneb INH 03/31/18 08:00 3 ml RTQID NAVA Administration Budesonide 0.5 mg 03/29/18 19:00 03/30/18 07:15 Pulmicort INH 0.5 mg RTBID NAVA Administration Cetirizine HCl 10 mg 03/30/18 09:00 03/30/18 08:53 Zyrtec PO 10 mg DAILY NAVA Administration Diltiazem HCl 180 mg 03/29/18 11:00 03/30/18 08:53 Cardizem Cd PO 180 mg DAILY NAVA Administration Formoterol Fumarate 20 mcg 03/29/18 19:00 03/30/18 07:14 Perforomist INH 20 mcg RTBID NAVA Administration Guaifenesin 600 mg 03/29/18 12:00 03/30/18 08:53 Mucinex PO 600 mg BID NAVA Administration Potassium Chloride/Dextrose/Sod Cl 1,000 mls @ 100 mls/hr 03/28/18 16:00 03/30/18 09:04 IV 100 mls/hr .Q10H NAVA Administration Acetaminophen 100 mls @ 400 mls/hr 03/28/18 16:55 Ofirmev IV Q6HR PRN Pain or Fever > 38C (100.4F) Levofloxacin 750 mg 03/30/18 09:00 03/30/18 08:53 Levaquin PO 750 mg DAILY NAVA Administration Levothyroxine Sodium 50 mcg 03/29/18 09:00 03/30/18 08:54 Synthroid Inj IVP 50 mcg DAILY NAVA Administration Montelukast Sodium 10 mg 03/29/18 21:00 03/29/18 22:04 Singulair PO 10 mg QPM NAVA Administration Multi-Ingredient Mouthwash/Gargle 30 ml 03/28/18 18:00 03/30/18 13:56 PO 30 ml TID NAVA Administration Pantoprazole Sodium 40 mg 03/28/18 16:00 03/30/18 17:36 Protonix IVP 40 mg BIDAC NAVA Administration Pravastatin Sodium 40 mg 03/29/18 21:00 03/29/18 22:04 Pravachol PO 40 mg QPM NAVA Administration Prednisone 40 mg 03/30/18 08:00 03/30/18 08:53 Deltasone PO 40 mg DAILYWM NAVA Administration Prochlorperazine Edisylate 10 mg 03/28/18 15:16 Compazine Inj IVP Q6HR PRN Nausea / Vomiting Sodium Chloride 10 ml 03/28/18 15:16 03/30/18 06:33 Normal Saline Flush 0.9% IVP 10 ml PRN PRN Administration NEEDED PER PROVIDER ORDERS Sodium Chloride 10 ml 03/28/18 17:00 03/30/18 17:36 Normal Saline Flush 0.9% IVP Not Given 0100,0900,1700 NAVA Temazepam 15 mg 03/28/18 15:16 03/30/18 00:07 Restoril PO 15 mg QPM PRN Administration Insomnia Tramadol HCl 50 mg 03/29/18 10:50 Ultram PO Q6H PRN PAIN Folic Acid 3 mg PO DAILY 12/14/16 Hydroxychloroquine [Plaquenil] 200 mg PO DAILY 12/14/16 Pravastatin [Pravachol] 40 mg PO QPM 12/14/16 Adalimumab [Humira] 40 mg SQ Q14D 03/28/18 Albuterol Sulf [Ventolin Hfa Inhaler] 1 - 2 puffs INH Q4HR PRN 03/28/18 Beclomethasone Dipropionate [Qvar Redihaler] 2 puffs INH BID 03/28/18 Levothyroxine [Synthroid] 100 mcg PO QDAC 03/28/18 Methotrexate Sodium/Pf [Methotrexate 50 mg/2 ml Vial] 7.5 mg SUBQ WE 03/28/18 Cetirizine [ZyrTEC] 10 mg PO DAILY 03/29/18 Montelukast [Singulair] 10 mg PO QPM 03/29/18 dilTIAZem HCl [Diltiazem 24Hr Cd] 180 mg PO DAILY 03/29/18 traMADol [Ultram] 50 mg PO Q6H PRN 03/29/18
[2018-03-30] MEDS: MONTELUKAST 10 MG TABLET PO SCH (21:01)
[2018-03-30] MEDS: PRAVASTATIN 40 MG TABLET PO SCH (21:01)
[2018-03-31] MEDS: SODIUM CHLORIDE FLUSH 0.9% 10 ML SYRINGE IVP SCH ×2 (00:59→08:27)
[2018-03-31] MEDS: PANTOPRAZOLE 40 MG VIAL IVP SCH (05:31)
[2018-03-31] MEDS: SODIUM CHLORIDE FLUSH 0.9% 10 ML SYRINGE IVP PRN ×2 (05:31→05:40)
[2018-03-31] MEDS: GI COCKTAIL 120 ML BOTTLE PO SCH (05:35)
[2018-03-31] MEDS: BUDESONIDE 0.5 MG/2 ML NEB INH SCH ×2 (05:36→08:22)
[2018-03-31 05:42] LABS: BASOPHILS % (AUTO) 0.1 %; HGB - HEMOGLOBIN 11.1 g/dL (14.0-18.0); LYMPHOCYTES # (AUTO) 1.1 10^3/uL (1.5-3.5); LYMPHOCYTES % (AUTO) 14.9 %; MEAN CORPUSCULAR HEMOGLOBIN 30.9 pg (27.0-31.0); MEAN CORPUSCULAR HGB CONC 33.9 g/dL (32.0-36.0); MEAN CORPUSCULAR VOLUME 91.3 fL (80.0-94.0); MEAN PLATELET VOLUME 7.9 fL (7.4-11.4); MONOCYTES # (AUTO) 0.5 10^3/uL (0.0-1.0); PLT - PLATELET COUNT 196 10^3/uL (130-450); RED BLOOD COUNT 3.61 10^6/uL (4.70-6.10); RED CELL DISTRIBUTION WIDTH 15.1 % (12.0-15.0); WHITE BLOOD COUNT 7.7 x10^3/uL (4.8-10.8)
[2018-03-31 05:54] LABS: ALBUMIN 2.1 g/dL (3.2-5.5); ALBUMIN/GLOBULIN RATIO 0.6 (1.0-2.2); ALKALINE PHOSPHATASE 72 IU/L (42-121); ALT ALANINE AMINOTRANSFERASE 99 IU/L (10-60); AST ASPARTATE AMINOTRANSFERASE 83 IU/L (10-42); BILIRUBIN,TOTAL 0.7 mg/dL (0.2-1.0); BUN - BLOOD UREA NITROGEN 21 mg/dL (6-20); CALCIUM 7.9 mg/dL (8.5-10.3); CARBON DIOXIDE - CO2 24 mmol/L (21-32); CHLORIDE 108 mmol/L (101-111); CREATININE 1.1 mg/dL (0.6-1.2); GFR - MDRD 67 (>89); GLUCOSE 107 mg/dL (70-100); SODIUM 137 mmol/L (135-145); TOTAL PROTEIN 5.7 g/dL (6.7-8.2)
[2018-03-31 05:58] LABS: VBG PH 7.471 (7.31-7.41)
[2018-03-31] MEDS: IPRATROPIUM/ALBUTEROL 3 ML NEB INH SCH (08:22)
[2018-03-31] MEDS: FORMOTEROL FUMARATE NEB 20 MCG/2 ML INH SCH (08:22)
[2018-03-31] MEDS: diltiaZEM CD 180 MG CAPSULE PO SCH (08:26)
[2018-03-31] MEDS: CETIRIZINE 10 MG TABLET PO SCH (08:27)
[2018-03-31] MEDS: LEVOTHYROXINE 100 MCG VIAL IVP SCH (08:27)
[2018-03-31] MEDS: levoFLOXacin 250 MG TABLET PO SCH (08:27)
[2018-03-31] MEDS: predniSONE 20 MG TABLET PO SCH (08:27)
[2018-03-31] MEDS: guaiFENesin 600 MG TABLET PO SCH (08:30)
[2018-03-31 08:52] VITALS: BP 135/71
--- NOTE | 2018-03-31 11:58 | Discharge Plan ---
Discharge Plan Disposition: 01 Home, Self Care Condition: Stable Prescriptions: Famotidine [Pepcid] 20 mg PO BIDWM #60 tablet guaiFENesin [Mucinex] 600 mg PO BID #20 tablet levoFLOXacin [Levaquin] 750 mg PO DAILY #10 tablet predniSONE [Deltasone] 40 mg PO DAILYWM #20 tablet Diet: Regular Activity Restrictions: Activity as Tolerated Shower Restrictions: No Driving Restrictions: No Weight Bearing: Full Weight Additional Instructions or Follow Up instructions: You presented to the emergency department with fevers, muscle aches, nausea, vomiting, sore throat, wheezing and cough. You are found to have an upper respiratory infection causing worsening of your asthma. You were also found to have a persistent urinary tract infection as well as dehydration. We treated you with antibiotics, steroids, nebulizers, fluids and supportive care. You improved over the course of 3 days in the hospital. You appear well enough that you can return home. We have prescribed you an antibiotic called Levaquin which she will take for 10 more days to complete 2 weeks of treatment for your urinary tract infection. You have also been prescribed prednisone which is a steroid that will help with your asthma exacerbation and upper respiratory infection. You will take this medication for 5 more days. You have been prescribed Pepcid which will help with your acid reflux and gastritis. We recommend that you continue to take your inhalers as previously directed. You will need to follow-up with your computer network support specialist regarding your rheumatoid Jed Tritus for further treatment with Humira and methotrexate. We have also given you information regarding primary care physicians in the area and would like you to follow-up with a primary care physician as soon as you are able to get an appointment to manage your chronic medical issues. No Smoking: If you smoke, Please STOP! Call for help. Follow-up with: José Miguel Gramajo MD [Primary Care Provider] -
--- NOTE | 2018-03-31 12:06 | DISCHARGE SUMMARY ---
Discharge Summary Admit Date: 03/28/18 Discharge Date: 03/31/18 Discharging Provider: Christopher Lamar MD Primary Care Provider: Gamal Bhat MD Code Status: Attempt Resuscitation Condition at Discharge: Stable Discharge Disposition: 01 Home, Self Care - DIAGNOSES Admission Diagnoses: 1. Dehydration 2. Acute kidney injury 3. Viral syndrome versus gastroenteritis versus gastrointestinal upset from antibiotics 4. Cystitis, partially treated 5. Laryngeal spasm 6. Asthma with exacerbation 7. History of rheumatoid arthritis 8. History of ulcerative colitis 9. Immunocompromise state, on Humira Discharge Diagnoses with Status of Each Condition: 1. Asthma exacerbation: Improved 2. Urinary tract infection: Improving 3. Acute kidney injury: Resolved 4. Hyponatremia: Resolved 5. Upper respiratory infection: Improving 6. History of rheumatoid arthritis: Stable - HPI History of Present Illness: Patient is a 67-year-old gentleman with a past medical history significant for asthma, hypothyroidism, hypertension, rheumatoid arthritis and ulcerative colitis requiring methotrexate and Humira. He was seen in the emergency department 9 days prior to hospitalization with dysuria and urgency and felt to have a cystitis and was sent home from the emergency department on Keflex. He did not skip the Humira, as he is supposed to do when he gets an infection, but took it 2 days ago, on schedule. Over the past 2 days he was noted to have a fever of 103, myalgias, nausea and vomiting, sore throat from vomiting, cough with white sputum production and shortness of breath with wheezing and feeling like his throat is closing up. There was no diarrhea. She presented to the e mergency department and workup showed that the patient was dehydrated and was placed in observation for management of his dehydration. - HOSPITAL COURSE Hospital Course: During the hospitalization the patient was found to have an asthma exacerbation along with acute kidney injury and upper respiratory infection which appeared to be from a viral syndrome. The patient's urine analysis also revealed that despite treatment his UTI had not resolved. The patient was treated with nebs, IV steroids, oxygen and IV antibiotics for his urinary tract infection. The patient was also given IV fluids for his acute kidney injury, hyponatremia and dehydration. Given the patient's immunocompromise status secondary to being on Humira and methotrexate the patient was slow to recover from his infections. The patient was hospitalized for 3 days and with continued treatment appeared to have resolution of his asthma exacerbation as well as his symptoms from his up per respiratory infection and urinary tract infection. The patient was weaned off of oxygen and switched to oral prednisone and oral antibiotics with Levaquin. The patient's acute kidney injury resolved with IV fluids and his hyponatremia also resolved. The patient was up walking the halls prior to discharge. The patient was discharged home with oral Levaquin for 10 additional days to complete 14 days of treatment for complicated urinary tract infection. The patient was also discharged with 5 additional days of prednisone to continue treatment for his asthma exacerbation. The patient was told to drink plenty of fluid and continue with his normal activities. 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 The patient does not have a primary care physician but was given information by our case management regarding primary care physicians in the area and will follow up with a primary care physician in the next couple of weeks. The patient was in stable condition at the time of discharge and was also given a prescription for Pepcid as it seemed to relieve his acid reflux and gastritis symptoms. - ALLERGIES Allergies/Adverse Reactions: Allergies Allergy/AdvReac Type Severity Reaction Status Date / Time amlodipine Allergy Unknown Verified 03/28/18 11:26 clarithromycin [From Biaxin] Allergy Nausea Verified 03/28/18 11:26 lisinopril Allergy Dizziness Verified 03/28/18 11:26 - MEDICATIONS Home Medications: Ambulatory Orders Medication Instructions Recorded Confirmed Folic Acid 3 mg PO DAILY 12/14/16 03/28/18 Hydroxychloroquine [Plaquenil] 200 mg PO DAILY 12/14/16 03/28/18 Pravastatin [Pravachol] 40 mg PO QPM 12/14/16 03/29/18 Adalimumab [Humira] 40 mg SQ Q14D 03/28/18 03/28/18 Albuterol Sulf [Ventolin Hfa 1 - 2 puffs INH Q4HR PRN 03/28/18 03/28/18 Inhaler] Beclomethasone Dipropionate [Qvar 2 puffs INH BID 03/28/18 03/28/18 Redihaler] Levothyroxine [Synthroid] 100 mcg PO QDAC 03/28/18 03/28/18 Methotrexate Sodium/Pf 7.5 mg SUBQ WE 03/28/18 03/28/18 [Methotrexate 50 mg/2 ml Vial] Cetirizine [ZyrTEC] 10 mg PO DAILY 03/29/18 03/29/18 Montelukast [Singulair] 10 mg PO QPM 03/29/18 03/29/18 dilTIAZem HCl [Diltiazem 24Hr Cd] 180 mg PO DAILY 03/29/18 03/29/18 traMADol [Ultram] 50 mg PO Q6H PRN 03/29/18 03/29/18 Famotidine [Pepcid] 20 mg PO BIDWM #60 tablet 03/31/18 guaiFENesin [Mucinex] 600 mg PO BID #20 tablet 03/31/18 levoFLOXacin [Levaquin] 750 mg PO DAILY #10 tablet 03/31/18 predniSONE [Deltasone] 40 mg PO DAILYWM #20 tablet 03/31/18 - PHYSICAL EXAM AT DISCHARGE General Appearance: positive: No acute distress, Alert Eyes Bilateral: positive: Normal inspection, PERRL, EOMI, No lid inflammation, Conjunctivae nml, No scleral icterus ENT: positive: ENT inspection nml, Pharynx nml, No signs of dehydration. negative: Purulent nasal drainage, Pharyngeal erythema, Oral lesions Neck: positive: Nml inspection, Thyroid nml, No JVD, Trachea midline. negative: Thyromegaly, Lymphadenopathy (R), Lymphadenopathy (L), Stiff neck, Carotid bruit, Tracheal deviation Respiratory: positive: Chest non-tender, No respiratory distress, Breath sounds nml, Wheezes (Mild, scattered). negative: Rales, Rhonchi Cardiovascular: positive: Regular rate & rhythm, No murmur, No gallop Peripheral Pulses: positive: 2+ Abdomen: positive: Non-tender, No organomegaly, Nml bowel sounds, No distention. negative: Guarding, Rebound, Hepatomegaly Back: positive: Nml inspection. negative: CVA tenderness (R), CVA tenderness (L) Skin: positive: Color nml, No rash, Warm. negative: Cyanosis, Diaphoresis, Pallor, Skin rash Extremities: positive: Non-tender, Full ROM, Nml appearance, No pedal edema Neurologic/Psychiatric: positive: Oriented x3, CN's nml (2-12), Motor nml, Sensation nml, Mood/affect nml - LABS Result Diagrams: 03/31/18 05:12 03/31/18 05:12 Other Lab Results: Laboratory Tests 03/28/18 03/28/18 03/28/18 11:50 11:50 12:47 WBC 18.3 H RBC 3.87 L Hgb 12.0 L Hct 34.7 L MCV 89.6 MCH 30.9 MCHC 34.5 RDW 14.4 Plt Count 231 MPV 8.0 Neut # (Auto) 17.0 H Lymph # (Auto) 0.5 L Benzie # (Auto) 0.8 Eos # (Auto) 0.0 Baso # (Auto) 0.0 Absolute Nucleated RBC 0.00 Nucleated RBC % 0.0 VBG pH Ionized Calcium Sodium Potassium Chloride Carbon Dioxide Anion Gap BUN Creatinine Estimated GFR (MDRD) Glucose Lactic Acid Calcium Magnesium Total Bilirubin AST ALT Alkaline Phosphatase B-Natriuretic Peptide Total Protein Albumin Globulin Albumin/Globulin Ratio Lipase Urine Color Urine Clarity Urine pH Ur Specific [place] Urine Protein Urine Glucose (UA) Urine Ketones Urine Occult Blood Urine Nitrite Urine Bilirubin Urine Urobilinogen Ur Leukocyte Esterase Urine RBC Urine WBC Ur Squamous Epith Cells Urine Bacteria Urine Casts Ur Microscopic Review Urine Culture Comments Influenza A (Rapid) Negative Influenza B (Rapid) Negative Group A Strep Rapid Negative 03/28/18 03/28/18 03/28/18 12:47 12:47 12:47 WBC RBC Hgb Hct MCV MCH MCHC RDW Plt Count MPV Neut # (Auto) Lymph # (Auto) Benzie # (Auto) Eos # (Auto) Baso # (Auto) Absolute Nucleated RBC Nucleated RBC % VBG pH Ionized Calcium Sodium 132 L Potassium 4.0 Chloride 95 L Carbon Dioxide 26 Anion Gap 11.0 BUN 33 H Creatinine 1.6 H Estimated GFR (MDRD) 43 L Glucose 124 H Lactic Acid 1.3 Calcium 8.4 L Magnesium Total Bilirubin 0.8 AST 32 ALT 24 Alkaline Phosphatase 91 B-Natriuretic Peptide 65 Total Protein 7.6 Albumin 2.9 L Globulin 4.7 H Albumin/Globulin Ratio 0.6 L Lipase 27 Urine Color Urine Clarity Urine pH Ur Specific [place] Urine Protein Urine Glucose (UA) Urine Ketones Urine Occult Blood Urine Nitrite Urine Bilirubin Urine Urobilinogen Ur Leukocyte Esterase Urine RBC Urine WBC Ur Squamous Epith Cells Urine Bacteria Urine Casts Ur Microscopic Review Urine Culture Comments Influenza A (Rapid) Influenza B (Rapid) Group A Strep Rapid 03/28/18 03/28/18 03/29/18 12:47 14:40 06:05 WBC 8.9 RBC 3.76 L Hgb 11.5 L Hct 34.6 L MCV 92.0 MCH 30.6 MCHC 33.3 RDW 15.0 Plt Count 192 MPV 8.0 Neut # (Auto) 8.5 H Lymph # (Auto) 0.2 L Benzie # (Auto) 0.1 Eos # (Auto) 0.0 Baso # (Auto) 0.0 Absolute Nucleated RBC 0.00 Nucleated RBC % 0.0 VBG pH Ionized Calcium Sodium Potassium Chloride Carbon Dioxide Anion Gap BUN Creatinine Estimated GFR (MDRD) Glucose Lactic Acid Calcium Magnesium 2.3 Total Bilirubin AST ALT Alkaline Phosphatase B-Natriuretic Peptide Total Protein Albumin Globulin Albumin/Globulin Ratio Lipase Urine Color YELLOW Urine Clarity CLOUDY Urine pH 6.0 Ur Specific [place] 1.025 Urine Protein 100 H Urine Glucose (UA) NEGATIVE Urine Ketones NEGATIVE Urine Occult Blood MODERATE H Urine Nitrite NEGATIVE Urine Bilirubin NEGATIVE Urine Urobilinogen 0.2 (NORMAL) Ur Leukocyte Esterase TRACE H Urine RBC 0-5 Urine WBC >25 H Ur Squamous Epith Cells RARE Squamous Urine Bacteria Moderate H Urine Casts 3-5 Granular Casts Ur Microscopic Review INDICATED Urine Culture Comments INDICATED Influenza A (Rapid) Influenza B (Rapid) Group A Strep Rapid 03/29/18 03/31/18 03/31/18 06:05 05:12 05:12 WBC 7.7 RBC 3.61 L Hgb 11.1 L Hct 32.9 L MCV 91.3 MCH 30.9 MCHC 33.9 RDW 15.1 H Plt Count 196 MPV 7.9 Neut # (Auto) 6.0 Lymph # (Auto) 1.1 L Benzie # (Auto) 0.5 Eos # (Auto) 0.0 Baso # (Auto) 0.0 Absolute Nucleated RBC 0.00 Nucleated RBC % 0.0 VBG pH Ionized Calcium YES Sodium 136 137 Potassium 4.2 3.8 Chloride 104 108 Carbon Dioxide 26 24 Anion Gap 6.0 5.0 L BUN 29 H 21 H Creatinine 1.4 H 1.1 Estimated GFR (MDRD) 51 L 67 L Glucose 169 H 107 H Lactic Acid Calcium 7.9 L 7.9 L Magnesium Total Bilirubin 0.7 AST 83 H ALT 99 H Alkaline Phosphatase 72 B-Natriuretic Peptide Total Protein 5.7 L Albumin 2.1 L Globulin 3.6 Albumin/Globulin Ratio 0.6 L Lipase Urine Color Urine Clarity Urine pH Ur Specific [place] Urine Protein Urine Glucose (UA) Urine Ketones Urine Occult Blood Urine Nitrite Urine Bilirubin Urine Urobilinogen Ur Leukocyte Esterase Urine RBC Urine WBC Ur Squamous Epith Cells Urine Bacteria Urine Casts Ur Microscopic Review Urine Culture Comments Influenza A (Rapid) Influenza B (Rapid) Group A Strep Rapid 03/31/18 05:12 WBC RBC Hgb Hct MCV MCH MCHC RDW Plt Count MPV Neut # (Auto) Lymph # (Auto) Benzie # (Auto) Eos # (Auto) Baso # (Auto) Absolute Nucleated RBC Nucleated RBC % VBG pH 7.471 H Ionized Calcium 1.11 L Sodium Potassium Chloride Carbon Dioxide Anion Gap BUN Creatinine Estimated GFR (MDRD) Glucose Lactic Acid Calcium Magnesium Total Bilirubin AST ALT Alkaline Phosphatase B-Natriuretic Peptide Total Protein Albumin Globulin Albumin/Globulin Ratio Lipase Urine Color Urine Clarity Urine pH Ur Specific [place] Urine Protein Urine Glucose (UA) Urine Ketones Urine Occult Blood Urine Nitrite Urine Bilirubin Urine Urobilinogen Ur Leukocyte Esterase Urine RBC Urine WBC Ur Squamous Epith Cells Urine Bacteria Urine Casts Ur Microscopic Review Urine Culture Comments Influenza A (Rapid) Influenza B (Rapid) Group A Strep Rapid - DIAGNOSTIC IMAGING Diagnostic Imaging Results: Final report reviewed Diagnostic Imaging Results Comments: Chest x-ray Impression: Mild bibasilar airspace disease seen favoring atelectasis or scarring. - FOLLOW UP Follow Up: Patient was discharged home after hospitalization for asthma exacerbation s econdary to upper respiratory infection and urinary tract infection as well as dehydration and acute kidney injury. The patient was discharged home with oral prednisone for 5 additional days for his asthma exacerbation and oral Levaquin for 10 days to complete 14 days of treatment for complicated UTI. 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 He will follow-up with a primary care physician within the next 2 weeks as he was given information about primary care physicians in the area currently he does not have one. - TIME SPENT Time Spent in Discharge (Minutes): 40
== END 2018-03-31 12:40 | disposition home or self-care (01) | DRG 202 ==
LOC: ED 11:20 → MS2 15:16 → OBSVTOIN 18:04
PROVIDERS: ADMIT Internal Medicine; ATTEND Internal Medicine
DX: B34.9 Viral infection, unspecified (principal); J45.901 Unspecified asthma with (acute) exacerbation; K51.90 Ulcerative colitis, unspecified, without complications; N17.9 Acute kidney failure, unspecified; E87.1 Hypo-osmolality and hyponatremia; N30.90 Cystitis, unspecified without hematuria; B96.20 Unspecified Escherichia coli [E. coli] as the cause of diseases classified elsewhere; E86.0 Dehydration; J06.9 Acute upper respiratory infection, unspecified; M06.9 Rheumatoid arthritis, unspecified; I10 Essential (primary) hypertension; E03.9 Hypothyroidism, unspecified; K21.9 Gastro-esophageal reflux disease without esophagitis; K29.70 Gastritis, unspecified, without bleeding; Z79.899 Other long term (current) drug therapy; Z79.2 Long term (current) use of antibiotics
CPT/HCPCS: 36415; 71045; 80048; 80053; 81001; 81003; 82330; 83605; 83690; 83735; 83880; 85025; 87040; 87070; 87086; 87181; 87205; 87275; 87276; 87430; 93005; 94640; 94664; 96361; 96374; 96375; 99283; 99284